=== PATIENT | female | born 1960 | race Caucasian/White ===

== ENCOUNTER 2018-04-13 15:45 | Emergency (ER) | payer BC ==
--- NOTE | 2018-04-13 15:48 | PDOC ---
Attending Attestation - Resident Resident Name: SharronAndrew pastor - ED Attending Attestation I have performed the following: I have examined & evaluated the patient, The case was reviewed & discussed with the resident, I agree w/resident's findings & plan, Exceptions are as noted - HPI HPI: 04/13/18 17:10 Patient complains of right-sided headache with photophobia. No nausea or vomiting. Present several days. History of migraines, with similar symptoms, but recently has been headache free. No recent illnesses, infectious or otherwise. 04/13/18 17:11 Past medical history of mild hypertension - Physicial Exam PE: 04/13/18 17:11 Physical exam reveals mildly elevated blood pressure in the 100 6090 range, otherwise vital signs normal HEENT clear. Fundi benign. Neck supple without bruit mass or nodes Chest clear CV regular without murmur rub or gallop Abdomen benign Neurological C2 to 12 intact. Strength full and symmetric. No focal sensory or motor deficits. Gait stable and unimpaired - Medical Decision Making 04/13/18 17:12 Impression is recurrent migraine, with uncertain precipitating factos Plan: Symptomatic treatment and observation. If improved, neurology referral and close follow-up. 04/13/18 18:16 The patient is much improved with medication. Headache is resolved. Discharge to follow-up as directed. In no pain or other distress. With family members.
[2018-04-13 15:51] VITALS: TEMP 97.4; BMI 27.1
--- NOTE | 2018-04-13 15:57 | PDOC ---
History of Present Illness - General Chief Complaint: Blood Pressure Problem Stated Complaint: HIGH BLOOD PRESSURE, HEADACHE Time Seen by Provider: 04/13/18 15:48 - History of Present Illness Initial Comments: The patient is a 57F w/ a history of migraines, adrenal gland resection, and meniere's disease who presents for evaluation of 3 days of persistent but waxing and waning R sided HENSON that is worse today than the last two days. The patient reports a history of migraines that have felt similar in the past but today is worse than usual. She denies a prodrome or any associated neurological symptoms. She tried taking sumatriptan today w/ little relief. Denies fevers/chills, recent illness, vision changes, chest pain, SOB, abdominal pain, N/V/C/D, or changes in sensation 04/13/18 17:04 Past History - Past Medical History Allergies/Adverse Reactions: Allergies Allergy/AdvReac Type Severity Reaction Status Date / Time No Known Allergies Allergy Verified 04/13/18 15:48 Home Medications: Ambulatory Orders Metoprolol Succinate [Toprol XL] 50 mg PO DAILY 10/27/11 Valsartan [Diovan] 80 mg PO DAILY 10/27/11 Spironolactone 25 mg PO DAILY 04/13/18 COPD: No HTN: Yes Other medical history: MIGRAINE HEADACHE - Suicide/Smoking/Psychosocial Hx Smoking Status: No Smoking History: Never smoked Have you smoked in the past 12 months: No Number of Cigarettes Smoked Daily: 0 Information on smoking cessation initiated: No Hx Alcohol Use: No Review of Systems - Review of Systems Able to Perform ROS?: Yes Comments:: GENERAL/CONSTITUTIONAL: No fever or chills. No weakness HEAD, EYES, EARS, NOSE AND THROAT: No change in vision. No ear pain or discharge. No sore throat CARDIOVASCULAR: No chest pain or shortness of breath RESPIRATORY: Denies cough, hemoptysis GASTROINTESTINAL: No nausea, vomiting, diarrhea or constipation GENITOURINARY: No dysuria, frequency, or change in urination MUSCULOSKELETAL: No joint or muscle swelling or pain. No neck or back pain SKIN: No rash NEUROLOGIC: No vertigo, loss of consciousness, or change in strength/sensation ENDOCRINE: No increased thirst. No abnormal weight change HEMATOLOGIC/LYMPHATIC: No anemia, easy bleeding, or history of blood clots ALLERGIC/IMMUNOLOGIC: No hives or skin allergy 04/13/18 15:56 04/13/18 16:17 Is the patient limited Romanian proficient: No *Physical Exam - Vital Signs Last Vital Signs Temp Pulse Resp BP Pulse Ox 97.4 F L 78 18 160/90 99 04/13/18 15:45 04/13/18 15:45 04/13/18 15:45 04/13/18 15:45 04/13/18 15:45 - Physical Exam Comments: GENERAL: Awake, alert, and fully oriented, in no acute distress HEAD: No signs of trauma, normocephalic, atraumatic EYES: PERRLA, EOMI, sclera anicteric, conjunctiva clear ENT: Hearing grossly normal, nares patent, oropharynx clear without exudates. Moist mucosa LUNGS: No distress, speaks full sentences, clear to auscultation bilaterally HEART: Regular rate and rhythm, normal S1 and S2, no murmurs appreciated, peripheral pulses normal and equal bilaterally ABDOMEN: Soft, nontender, normoactive bowel sounds. No guarding, no rebound EXTREMITIES : Normal inspection, Normal range of motion, no edema. No clubbing or cyanosis NEUROLOGICAL: Cranial nerves II through XII grossly intact. Normal speech, normal gait, no focal sensorimotor deficits SKIN: Warm, Dry, normal turgor, no rashes or lesions noted 04/13/18 15:56 Moderate Sedation - Procedure Monitoring Vital Signs: Procedure Monitoring Vital Signs Temperature 97.4 F L 04/13/18 15:45 Pulse Rate 78 04/13/18 15:45 Respiratory Rate 18 04/13/18 15:45 Blood Pressure 160/90 04/13/18 15:45 O2 Sat by Pulse Oximetry (%) 99 04/13/18 15:45 Medical Decision Making - Medical Decision Making The patient is a 57F w/ a history of migraines who presents for evaluation of 3d of persistent, waxing/waning, R-sided headache w/o neuro changes. Patient took sumatriptan with little relief Ddx: migraine HENSON v tension HENSON v cluster HENSON Likely Migraine given PMH and presentation Benadryl 25mg IV once Toradol 30mg IV once 04/13/18 16:18 Patient reports improvement in HENSON symptoms 04/13/18 16:58 Patient with symptom resolution Patient's drowsiness also resolved s/p benadryl Plan for D/C w/ PCP f/u Discharge instructions and return precautions given Patient in agreement and verbalized understanding Dispo: home 04/13/18 18:21 *DC/Admit/Observation/Transfer Diagnosis at time of Disposition: Migraine Qualifiers: Migraine type: without aura Status migrainosus presence: without status migrainosus Intractability: not intractable Qualified Code(s): G43.009 - Migraine without aura, not intractable, without status migrainosus - Discharge Dispostion Disposition: HOME Condition at time of disposition: Stable Decision to Admit order: No - Referrals Referrals: Emerson Fernandez MD [Primary Care Provider] - Judson Ellington MD [Staff Physician] - - Patient Instructions Printed Discharge Instructions: DI for Migraine Additional Instructions: You were seen in the Emergency Department today for evaluation of a migraine. Review the handout provided at discharge. Continue to take your medications as directed. Follow up with your primary care provider and neurology referral. Return to the Emergency Department if you develop fevers/chills, vision changes , numbness/tingling, sensory changes, worsening/persistent symptoms, or any new/ concerning symptoms. - Post Discharge Activity
[2018-04-13] MEDS ORDERED: KETOROLAC TROMETHAMINE 30 MG/1 ML VIAL IVPUSH ONE (16:14)
[2018-04-13] MEDS ORDERED: KETOROLAC TROMETHAMINE 30 MG/1 ML VIAL ONE (16:17)
[2018-04-13 18:13] VITALS: BP 117/72; PULSE 63
== END 2018-04-13 18:20 | disposition home or self-care (01) ==
LOC: FER 15:45
PROC: 3E033GC Introduction of Other Therapeutic Substance into Peripheral Vein, Percutaneous Approach (ICD-10-PCS; principal; 2018-04-13)
PROC: 3E0333Z Introduction of Anti-inflammatory into Peripheral Vein, Percutaneous Approach (ICD-10-PCS; 2018-04-13)
DX: G43.009 Migraine without aura, not intractable, without status migrainosus (principal); K29.60 Other gastritis without bleeding; I10 Essential (primary) hypertension
CPT/HCPCS: 99284-25

== ENCOUNTER 2018-04-17 15:21 | Emergency (ER) | payer BC ==
--- NOTE | 2018-04-17 15:22 | PDOC ---
History of Present Illness - General History Source: Patient Exam Limitations: Language Barrier - History of Present Illness Initial Comments: 57 F w/ a history of migraines, adrenal gland resection, and meniere's disease who presents to the ED with Sudden onset of slurring her words, R sided facial droop, Left arm weakness, left leg weakness and incoordination. Patient was last well earlier today 1 hour prior to arrival. Her son is with her at bedside and states she has a strong history of hypertension. She has been taking naproxen for migraines. PCP: Rebecca Norman Social Hx: Former smoker Allergies: NKA, NKDA <Leon Cox - Last Filed: 04/17/18 17:13> <Jenna Gallegos - Last Filed: 04/17/18 17:54> - General Chief Complaint: CVA/TIA Stated Complaint: HEADACHE, LEFT ARM WEAKNESS Time Seen by Provider: 04/17/18 15:22 Attending Attestation - Resident Resident Name: Leon Cox - ED Attending Attestation I have performed the following: I have examined & evaluated the patient, The case was reviewed & discussed with the resident, I agree w/resident's findings & plan, Exceptions are as noted - HPI HPI: H/O migraine headaches, hypertension, seen in ER a week ago This a.m patient went shopping with her grown up son, driving the car until one hour prior to arrival when she was taking the wrong turns, slurred speech, the son took control of the car and brought her to the ER. Walking in with help, able to provide some answers, usha for her in Serbian 04/17/18 17:28 - Physicial Exam PE: Alert, oriented x 3 , dysarthric, Weakness and small spastic contractures left hand Weakness, left leg 04/17/18 17:35 - Critical Care Time Total Critical Care Time: 45 Critical Care Statement: The care of this patient involved high complexity decision making to prevent further life threatening deterioration of the patient 's condition and/or to evaluate & treat vital organ system(s) failure or risk of failure. - Medical Decision Making Based on the presentation, CVA protocol started, CT done, discussed with Neurologist relocation counselor, , Radiology Patient seized, Ativa Keppra able to control seizures Son in attendance Decision to transfer to [facility] via [facility] ambulance 04/17/18 17:48 <Jenna Gallegos S - Last Filed: 04/17/18 17:54> Past History - Past Medical History COPD: No HTN: Yes - Suicide/Smoking/Psychosocial Hx Smoking Status: No Smoking History: Never smoked Have you smoked in the past 12 months: No Number of Cigarettes Smoked Daily: 0 Hx Alcohol Use: No <JanetrobLeon - Last Filed: 04/17/18 17:13> <Jenna Gallegos Sascha - Last Filed: 04/17/18 17:54> - Past Medical History Allergies/Adverse Reactions: Allergies Allergy/AdvReac Type Severity Reaction Status Date / Time No Known Allergies Allergy Verified 04/13/18 15:48 Home Medications: Ambulatory Orders Metoprolol Succinate [Toprol XL] 50 mg PO DAILY 10/27/11 Valsartan [Diovan] 80 mg PO DAILY 10/27/11 Spironolactone 25 mg PO DAILY 04/13/18 Ergocalciferol [Vitamin D2] 50,000 unit PO WEEKLY 04/17/18 Ibuprofen 600 mg PO TID PRN 04/17/18 Naproxen/Esomeprazole Mag [Vimovo Dr 500-20 mg Tablet] 1 each PO BID PRN Neuro Specific PMHX - Complaint Specific PMHX Migraine: Yes TIA: Yes <Leon Cox - Last Filed: 04/17/18 17:13> Review of Systems - Review of Systems Able to Perform ROS?: No (Patient is comatose) <Leon Cox - Last Filed: 04/17/18 17:13> *Physical Exam - Physical Exam Comments: GENERAL: Well developed, well nourished. Awake, in distress bc inability to move left arm. HEENT: R sided facial droop. Normocephalic, atraumatic. PERRLA, EOMI. No conjunctival pallor. Sclera are non-icteric. Moist mucous membranes. Oropharynx is clear. NECK: Supple. Full ROM. No JVD. CARDIOVASCULAR: tachycardic rate and rhythm. No murmurs, rubs, or gallops. Distal pulses are 2+ and symmetric. PULMONARY: No evidence of respiratory distress. Lungs clear to auscultation bilaterally. No wheezing, rales or rhonchi. ABDOMINAL: Soft. Non-tender. Non-distended. No rebound or guarding. No organomegaly. Normoactive bowel sounds. MUSCULOSKELETAL Normal range of motion at all joints. No bony deformities or tenderness. No CVA tenderness. EXTREMITIES: No cyanosis. No clubbing. No edema. No calf tenderness. SKIN: Warm and dry. Normal capillary refill. No rashes. No jaundice. NEUROLOGICAL: There is a R sided facial droop. Left arm and leg weakness. Patient is actively seizing - left arm twitches. Normal sensation. Alert, awake, appropriate. Slurred speech. Left big toe is upgoing. Gait is ataxic. PSYCHIATRIC: Cooperative. Good eye contact. Appropriate mood and affect. <Leon Cox - Last Filed: 04/17/18 17:13> - Vital Signs Last Vital Signs Temp Pulse Resp BP Pulse Ox 97.4 F L 100 H 18 179/115 H 99 04/17/18 15:22 04/17/18 15:22 04/17/18 15:22 04/17/18 15:22 04/17/18 15:22 <Jenna Gallegos S - Last Filed: 04/17/18 17:54> NIH Stroke Scale - Last Known Well Date/Time & Onset Date Last Known Well: 04/17/18 Time Last Known Well: 15:00 - Initial Evaluation Level of consciousness: Alert Ask patient the month and their age: Answers both correctly Ask patient to open & close eyes; make fist and let go: Obeys one correctly Best gaze (horizontal eye movement): Partial gaze palsy Visual field testing: Partial hemianopia Facial paresis (Show teeth/raise eyebrows/close eyes tight): Complete paralysis of one or both sides (Upper and lower face) Motor Function: Left Arm: Some effort against gravity Motor Function: Right Arm: Normal (extends arm 90 (or 45) degrees for 10 seconds without drift Motor Function: Left Leg: Drift Motor Function: Right Leg: Normal (extends leg 30 degrees for 5 seconds without drift) Limb Ataxia: Present in one limb Sensory(Use pinprick test arms,legs,trunk,face/side to side): Normal Best language (Describe picture, name items, read sentences): Mild to moderate aphasia Dysarthria (read several words): Mild to moderate slurring of words Extinction and Inattention: No abnormality - Total Score NIH Stroke Scale Score: 12 <Leon Cox - Last Filed: 04/17/18 17:13> Moderate Sedation - Procedure Monitoring Vital Signs: Procedure Monitoring Vital Signs Temperature 97.4 F L 04/17/18 15:22 Pulse Rate 100 H 04/17/18 15:22 Respiratory Rate 18 04/17/18 15:22 Blood Pressure 179/115 H 04/17/18 15:22 O2 Sat by Pulse Oximetry (%) 99 04/17/18 15:22 <Jenna Gallegos S - Last Filed: 04/17/18 17:54> Critical Care Time/MDM Note - Medical Decision Making Note: 57 F w/ a history of migraines, adrenal gland resection, and meniere's disease who presents to the ED with Sudden onset of slurring her words, R sided facial droop, Left arm weakness, left leg weakness and incoordination. Patient was last well earlier today 1 hour prior to arrival. Her son is with her at bedside and states she has a strong history of hypertension. DDx IBNLT: Stroke, CVA, SAH, seizure, HTN emergency. Patient is actively stroking and seizing. We are performing a stat head CT and drawing a rainbow set of labs. Head CT shows a Subarachnoid hemorrhage, subdural hemorrhage, and other area with brain bleeds. She needs to be transfered to a center with interventional radiology. Patient is actively seizing despite 500 of keppra. We are giving her 2 mg of Ativan. Called Dr. Crowe for advise about patient. He reccommended to give another 500 of Keppra. Transfer to [place] initiated. Receving physician: Gus Khalil. Patient is hemodynamically stable. Upon arrival her BP was 179/115. After ativan and Keppra her BP is 117/80. <Leon Cox - Last Filed: 04/17/18 17:13> *DC/Admit/Observation/Transfer - Discharge Dispostion Decision to Admit order: No <Leon Cox - Last Filed: 04/17/18 17:13> <Jenna Gallegos S - Last Filed: 04/17/18 17:54> Diagnosis at time of Disposition: Cerebrovascular accident (CVA), SAH (subarachnoid hemorrhage), Subdural hematoma - Discharge Dispostion Disposition: TRANSFER ACUTE CARE/OTHER HOSP Condition at time of disposition: Critical - Referrals Referrals: Emerson Fernandez MD [Primary Care Provider] - - Patient Instructions - Post Discharge Activity
[2018-04-17 15:27] VITALS: BMI 27.1
[2018-04-17] MEDS ORDERED: levETIRAcetam 500 MG/5 ML INJECTION VIAL IVPB ONE ×4 (15:59→16:13)
[2018-04-17 16:02] LABS: BASO % 0.3 % (0-2.0); EOS % 0.6 % (0-4.5); HEMATOCRIT 45.1 % (32.4-45.2); HEMOGLOBIN 14.2 GM/dl (10.7-15.3); LYMPH % 18.1 % (8-40); MCH 30.8 pg (25.7-33.7); MCHC 31.6 g/dl (32.0-36.0); MEAN CELL VOLUME 97.6 fl (80-96); MEAN PLT VOLUME 9.1 fl (7.5-11.1); MONO % 8.7 % (3.8-10.2); NEUT % 72.3 % (42.8-82.8); PLATELET COUNT 303 K/MM3 (134-434); RBC 4.62 M/mm3 (3.60-5.2); RDW 13.6 % (11.6-15.6); WHITE BLOOD COUNT 8.7 K/mm3 (4.0-10.8)
[2018-04-17] MEDS ORDERED: LORazepam 2 MG/ML SDV VIAL ONE (16:04)
[2018-04-17] MEDS ORDERED: LABETALOL HCL 5 MG/1 ML (100MG/20 ML VIAL) IVPUSH ONE (16:12)
[2018-04-17 16:16] LABS: ACTIVATED PTT 22.6 SECONDS (25.2-36.5)
[2018-04-17 16:17] LABS: ALBUMIN 3.5 g/dl (3.5-5.0); ALK PHOS 80 U/L (32-92); ANION GAP 3 MMOL/L (8-16); BILIRUBIN,TOTAL 0.4 mg/dl (0.2-1.0); BLOOD UREA NITROGEN 20 mg/dl (7-18); CALCIUM 9.1 mg/dl (8.4-10.2); CHLORIDE 102 mmol/L (98-107); CO2 31 mmol/L (22-28); CREATININE 0.7 mg/dl (0.6-1.3); GLUCOSE,RANDOM 138 mg/dl (74-106); POTASSIUM 3.9 mmol/L (3.5-5.1); SGOT/AST 20 U/L (10-42); SGPT/ALT 13 U/L (10-40); SODIUM 136 mmol/L (136-145); TOT PROT 6.8 g/dl (6.4-8.3)
[2018-04-17 16:21] LABS: PROTHROMBIN TIME (PATIENT) 11.2 SEC (10.2-13.0)
[2018-04-17 17:13] VITALS: BP 117/75; PULSE 86; TEMP 98.1
[2018-04-17] MEDS ORDERED: HEMOQUE CONTROL SOLUTION ONE (18:16)
--- NOTE | 2018-04-18 10:14 | EKG ---
Test Reason : Blood Pressure : / mmHG Vent. Rate : 099 BPM Atrial Rate : 099 BPM P-R Int : 194 ms QRS Dur : 068 ms QT Int : 316 ms P-R-T Axes : 046 008 028 degrees QTc Int : 405 ms POOR DATA QUALITY, INTERPRETATION MAY BE ADVERSELY AFFECTED NORMAL SINUS RHYTHM SEPTAL INFARCT , AGE UNDETERMINED ABNORMAL ECG NO PREVIOUS ECGS AVAILABLE Confirmed by KANU SERRANO MD ([id number]) on 04/18/2018 10:14:31 AM Referred By: DR RUSH Confirmed By:KANU SERRANO MD
== END 2018-04-17 17:30 | disposition short-term general hospital (02) ==
LOC: FER 15:21
PROC: 3E033GC Introduction of Other Therapeutic Substance into Peripheral Vein, Percutaneous Approach (ICD-10-PCS; principal; 2018-04-17)
PROC: 3E033NZ Introduction of Analgesics, Hypnotics, Sedatives into Peripheral Vein, Percutaneous Approach (ICD-10-PCS; 2018-04-17)
DX: R27.8 Other lack of coordination (principal); I63.9 Cerebral infarction, unspecified; I60.9 Nontraumatic subarachnoid hemorrhage, unspecified; I10 Essential (primary) hypertension; H81.09 Meniere's disease, unspecified ear
CPT/HCPCS: 36415; 70450-TC; 71045-TC-FY; 80053; 82962; 85025; 85610; 85730; 93005; 99285-25

== ENCOUNTER 2018-04-23 15:49 | Emergency (ER) | payer BC ==
[2018-04-23 16:00] VITALS: BMI 26.9
--- NOTE | 2018-04-23 16:19 | PDOC ---
History of Present Illness - General Chief Complaint: Vaginal Bleeding Stated Complaint: VAGINAL BLEEDING Time Seen by Provider: 04/23/18 16:18 - History of Present Illness Initial Comments: 57yo F with past medical history of hypertension, Mnires disease, migraines, adrenal gland resection, recent subarachnoid hemorrhage and subdural hemorrhage on 04/17/18 presenting with bleeding. Patient states that she was discharged from [facility] on Saturday. No surgical procedure was performed to evacuate the brain bleed. Patient reports that she is back at her baseline neurological status and she was told that since the clot in her brain was not dissolving, she would be prescribed Coumadin. Patient started taking this medicine on Saturday evening. She noticed yesterday that an IV insertion site was causing her pain due to bulging. Patient also noticed that she had about a teaspoon of vaginal bleeding. Denies any clots, vaginal discharge, or genital lesions. She does not know when her last pap smear was but the ones she has had have been normal. Denies history of STIs. Menopause was in 2013 and she denies vaginal bleeding since that time. No fevers, chills, chest pain, shortness of breath, or abdominal pain. Past History - Past Medical History Allergies/Adverse Reactions: Allergies Allergy/AdvReac Type Severity Reaction Status Date / Time No Known Allergies Allergy Verified 04/23/18 15:49 Home Medications: Ambulatory Orders Metoprolol Succinate [Toprol XL] 50 mg PO DAILY 10/27/11 Valsartan [Diovan] 80 mg PO DAILY 10/27/11 Spironolactone 25 mg PO DAILY 04/13/18 Ergocalciferol [Vitamin D2] 50,000 unit PO WEEKLY 04/17/18 Naproxen/Esomeprazole Mag [Vimovo Dr 500-20 mg Tablet] 1 each PO BID PRN Levetiracetam [Keppra] 250 mg PO BID 04/23/18 Warfarin Sodium [Coumadin] 2.5 mg PO DAILY 04/23/18 COPD: No HTN: Yes - Reproductive History Is Patient Now?: No - Suicide/Smoking/Psychosocial Hx Smoking Status: No Smoking History: Never smoked Have you smoked in the past 12 months: No Number of Cigarettes Smoked Daily: 0 Information on smoking cessation initiated: No Hx Alcohol Use: No Drug/Substance Use Hx: No Review of Systems - Review of Systems Comments:: Constitutional: no fever, no chills HEENT: no throat pain, no dysphagia Cardiovascular: no chest pain, no palpitations Respiratory: no cough, no shortness of breath Gastrointestinal: no abdominal pain, no nausea, no vomiting Genitourinary: no dysuria, no frequency Musculoskeletal: no myalgia, no arthralgia Skin: +IV site lesion, no itching Neurologic: no headache, no dizziness *Physical Exam - Vital Signs Last Vital Signs Temp Pulse Resp BP Pulse Ox 97.8 F 100 H 20 142/95 98 04/23/18 15:49 04/23/18 15:49 04/23/18 15:49 04/23/18 15:49 04/23/18 15:49 - Physical Exam Comments: General: Awake, alert, and fully oriented, in no acute distress Head: No signs of trauma Eyes: EOMI, sclera anicteric ENT: Moist mucus membranes Neck: Normal ROM, supple Lungs: Lungs clear, Normal breath sounds Cardio: Regular rhythm, S1 and S2 present Abdomen: Soft, nontender. No guarding, no rebound, no masses Extremities: Normal range of motion, Distal pulses present SKIN: 1cm raised lesion on right anterior forearm without bleeding or discharge , erythematous; multiple ecchymoses on both upper extremities from IV insertion attempts Neurologic: Cranial nerves II through XII grossly intact. Normal speech, sensation, strength, coordination, and gait. Moderate Sedation - Procedure Monitoring Vital Signs: Procedure Monitoring Vital Signs Temperature 97.8 F 04/23/18 15:49 Pulse Rate 100 H 04/23/18 15:49 Respiratory Rate 20 04/23/18 15:49 Blood Pressure 142/95 04/23/18 15:49 O2 Sat by Pulse Oximetry (%) 98 04/23/18 15:49 ED Treatment Course - LABORATORY CBC & Chemistry Diagram: 04/23/18 17:29 04/23/18 17:29 Medical Decision Making - Medical Decision Making 57yo F with past medical history of hypertension, Mnires disease, migraines, adrenal gland resection, recent subarachnoid hemorrhage and subdural hemorrhage on 04/17/18 presenting with bleeding. -DDX includes but not limited to: hematoma, bleeding diathesis from supratherapeutic INR, cervical cancer, wound -Labs to check hgb and INR; pelvic exam -Discuss case with neurosurgery at [place] While speaking with Dr. Kirk, the patient developed a headache similar in region to that she had last week. He spoke with [place] neurosurgery regarding her bleeding and worsening headache and the decision was made to transfer patient to [place] for an advanced level of care. Transfer paperwork completed We are notified that patient will likely be transferred around 6:45pm 04/23/18 18:11 *DC/Admit/Observation/Transfer Diagnosis at time of Disposition: Recurrent headache - Discharge Dispostion Disposition: TRANSFER ACUTE CARE/OTHER HOSP Condition at time of disposition: Stable - Referrals - Patient Instructions - Post Discharge Activity
[2018-04-23 17:47] LABS: BASO % 0.5 % (0-2.0); EOS % 0.7 % (0-4.5); HEMOGLOBIN 14.4 GM/dl (10.7-15.3); MCH 30.8 pg (25.7-33.7); MCHC 31.9 g/dl (32.0-36.0); MEAN CELL VOLUME 96.6 fl (80-96); MEAN PLT VOLUME 8.6 fl (7.5-11.1); MONO % 7.9 % (3.8-10.2); NEUT % 77.9 % (42.8-82.8); PLATELET COUNT 399 K/MM3 (134-434); RBC 4.66 M/mm3 (3.60-5.2); RDW 14.1 % (11.6-15.6); WHITE BLOOD COUNT 9.9 K/mm3 (4.0-10.8)
[2018-04-23 18:03] VITALS: TEMP 97.9
[2018-04-23 18:05] LABS: ACTIVATED PTT 34.8 SECONDS (25.2-36.5); INR 3.42 (0.82-1.09); PROTHROMBIN TIME (PATIENT) 37.4 SEC (10.2-13.0)
--- NOTE | 2018-04-23 18:05 | PDOC ---
Attending Attestation - Resident Resident Name: Vilma Parisi - ED Attending Attestation I have performed the following: I have examined & evaluated the patient, The case was reviewed & discussed with the resident, I agree w/resident's findings & plan, Exceptions are as noted - HPI HPI: 04/23/18 18:00 Patient complains of vaginal bleeding, recurrent headache. She was admitted to [facility], neuro endovascular service on April 17 with symptoms of a right sided CVA and subarachnoid hemorrhage on CAT scan. She was discharged on April 21 on seizure prophylaxis and warfarin. No further history is available from the patient or her family, and the neuro endovascular service was contacted by phone to clarify the hospital course. Dr. Rivera was reached by phone, who is the attending on the service. He did not know the patient, but obtain information from the medical record. He revealed that the patient was treated for a cerebral sinus thrombosis with secondary bleeding. The usual treatment is anticoagulation, which paradoxically reduces the bleeding in most cases. No etiology for the hypercoagulability/ thrombosis was identified, although a search for occult malignancy and evaluation for procoagulant proteins were not undertaken. He advises readmission to [place] for further evaluation and treatment Transfer was arranged via [facility] ambulance to the neurosurgery service with Dr.Al- Marinelli as the accepting physician. - Physicial Exam PE: 04/23/18 18:05 Patient is clinically and hemodynamically stable. Vital signs are normal. Vaginal bleeding was described as approximately 1 tablespoon of bright red blood on 2 separate occasions, associated with urination but definitely originating in the vagina. It is uncertain how the patient can be sure of this, but she is definite. Remainder physical exam is normal. Neurologically she is intact, with the original right hemiparesis and right facial paralysis completely resolved. - Medical Decision Making 04/23/18 18:06 Assessment: Vaginal bleeding, likely there result of warfarin therapy, but possibly signifying an occult malignancy, most likely endometrial CA. Recurrent headache, rule out recurrent cerebral hemorrhage, though the patient has no neurological signs or symptoms Plan: To transfer to [facility] for readmission, further evaluation of thrombosis and hemorrhage, surgical for precipitating factors for thrombosis, and investigative vaginal bleeding. Clinically and hemodynamically stable upon transfer by ambulance. CBC is normal, without anemia or thrombocytopenia. INR still pending.
[2018-04-23 18:07] LABS: ALBUMIN 3.3 g/dl (3.5-5.0); ALK PHOS 90 U/L (32-92); ANION GAP 7 MMOL/L (8-16); BILIRUBIN,TOTAL 0.3 mg/dl (0.2-1.0); BLOOD UREA NITROGEN 19 mg/dl (7-18); CALCIUM 9.2 mg/dl (8.4-10.2); CHLORIDE 108 mmol/L (98-107); CO2 23 mmol/L (22-28); CREATININE 0.7 mg/dl (0.6-1.3); GLUCOSE,RANDOM 122 mg/dl (74-106); POTASSIUM 3.9 mmol/L (3.5-5.1); SGOT/AST 20 U/L (10-42); SGPT/ALT 20 U/L (10-40); SODIUM 138 mmol/L (136-145); TOT PROT 6.6 g/dl (6.4-8.3)
[2018-04-23 19:35] VITALS: BP 114/70; PULSE 82
== END 2018-04-23 19:45 | disposition short-term general hospital (02) ==
LOC: FER 15:49
DX: R51 Headache (principal); I10 Essential (primary) hypertension; H81.09 Meniere's disease, unspecified ear; Z79.01 Long term (current) use of anticoagulants
CPT/HCPCS: 36415; 80053; 85025; 85610; 85730; 99285-25